=== PATIENT | male | born 1975 | race Caucasian/White ===

== ENCOUNTER 2022-09-26 18:44 | Emergency (ER) | payer BC ==
[2022-09-26 18:52] VITALS: BP 118/80; PULSE 85; RESP 18; TEMP 98.4; BMI 32.1
[2022-09-26] MEDS ORDERED: ACETAMINOPHEN 1000 MG/100 ML BAG IVPB ONE (20:04)
[2022-09-26] MEDS ORDERED: SODIUM CHLORIDE 1,000 ML IV STA (20:04)
[2022-09-26] MEDS ORDERED: ONDANSETRON 4 MG/2 ML VIAL IVPUSH ONE (20:04)
[2022-09-26] MEDS ORDERED: FAMOTIDINE 20 MG TABLET PO ONE (20:04)
[2022-09-26] MEDS ORDERED: ONDANSETRON 4 MG/2 ML VIAL ONE (21:01)
[2022-09-26] MEDS ORDERED: ACETAMINOPHEN INJECTION 100 ML IVPB ONE (21:01)
[2022-09-26] MEDS ORDERED: FAMOTIDINE 20 MG TABLET ONE (21:01)
[2022-09-26 21:21] LABS: BASO % 0.2 % (0-2.0); EOS % 2.3 % (0-4.5); HEMATOCRIT 43.6 % (35.4-49); HEMOGLOBIN 15.1 GM/dL (11.7-16.9); LYMPH % 15.9 % (8-40); MCH 31.7 pg (25.7-33.7); MCHC 34.7 g/dl (32.0-35.9); MEAN CELL VOLUME 91.2 fl (80-96); MEAN PLT VOLUME 8.9 fl (7.5-11.1); MONO % 7.6 % (3.8-10.2); PLATELET COUNT 249 10^3/uL (134-434); RBC 4.78 M/mm3 (4.00-5.60); RDW 13.2 % (11.9-15.9); WHITE BLOOD COUNT 9.5 K/mm3 (4.0-10.0)
[2022-09-26 21:30] LABS: INR 0.97 (0.83-1.09); PROTHROMBIN TIME (PATIENT) 11.2 SEC (9.7-13.0)
[2022-09-26 21:33] LABS: ACTIVATED PTT 30.8 SECONDS (25.2-36.5)
[2022-09-26 21:42] LABS: POTASSIUM 5.8 mmol/L (3.5-5.1)
[2022-09-26 21:44] LABS: ALBUMIN 3.7 g/dl (3.4-5.0); CALCIUM 8.8 mg/dL (8.5-10.1)
[2022-09-26 21:45] LABS: BLOOD UREA NITROGEN 10.4 mg/dL (7-18)
[2022-09-26 21:47] LABS: CREATININE 0.9 mg/dL (0.55-1.3)
[2022-09-26 21:49] LABS: BILIRUBIN,TOTAL 0.6 mg/dL (0.2-1); TOT PROT 6.6 g/dl (6.4-8.2)
== END 2022-09-26 23:15 | disposition home or self-care (01) ==
LOC: JER 18:44
PROC: 3E033NZ Introduction of Analgesics, Hypnotics, Sedatives into Peripheral Vein, Percutaneous Approach (ICD-10-PCS; principal; 2022-09-26)
PROC: 3E033GC Introduction of Other Therapeutic Substance into Peripheral Vein, Percutaneous Approach (ICD-10-PCS; 2022-09-26)
PROC: 3E0337Z Introduction of Electrolytic and Water Balance Substance into Peripheral Vein, Percutaneous Approach (ICD-10-PCS; 2022-09-26)
DX: R11.2 Nausea with vomiting, unspecified (principal); R19.7 Diarrhea, unspecified; R10.10 Upper abdominal pain, unspecified; R53.81 Other malaise; R42 Dizziness and giddiness; Z20.822 Contact with and (suspected) exposure to COVID-19
CPT/HCPCS: 0241U-QW; 36415; 80053; 83690; 84484; 85025; 85610; 85730; 93005; 93010; 99284-25

== ENCOUNTER 2022-11-01 03:34 | Emergency (ER) | payer BC ==
[2022-11-01 04:01] VITALS: BP 151/90; PULSE 110; RESP 20; TEMP 97.7; BMI 28.3
[2022-11-01] MEDS ORDERED: valACYclovir HCL 500 MG TABLET (FP) PO ONE (04:39)
[2022-11-01] MEDS ORDERED: valACYclovir HCL 500 MG TABLET (FP) ONE (04:55)
== END 2022-11-01 05:40 | disposition home or self-care (01) ==
LOC: JER 03:34
DX: B02.9 Zoster without complications (principal)
CPT/HCPCS: 99283-25